=== PATIENT | male | born 1980 | race Caucasian/White ===

== ENCOUNTER 2016-12-19 13:08 | Emergency (ER) | payer OTHER ==
--- NOTE | ~2016-12-19 | CR252 ---
[facility] A Service of [facility] RADIOLOGY TEXT RESULTS PATIENT: TRICIA TYLER LOCATION: [facility] : 82 UNIT #: [id number] AGE: [address]: Nando Oneil MD SEX: M ORDER DR: [id number] [facility] [address]. [place], [place] [address] [id number] E MR#: [id number] Acc #: [id number] NAME: TRICIA TYLER : 1980 SEX: M STUDY DATE/TIME: 12/19/2016 12:53 UNIT: [facility] ROOM: STUDY DESCRIPTION: CR Tibia and Fibula 2 Views Lt Attending Physician: Nando Oneil M.D. Ordering Physician: Nando Oneil M.D. MEDICAL IMAGING REPORT This report is preliminary unless electronic signature is present EXAM Left leg, 12/19/2016. HISTORY 36-year-old male with left leg pain status post reduction of left fibular fracture today. COMPARISON Left leg same date. FINDINGS 3 views of the left leg demonstrate interval casting of the left leg with reduction of the fibular fracture. There is improved alignment and positioning at the fracture site. There is only minimal residual displacement of the spiral oblique fracture and the butterfly fragment. IMPRESSION Interval reduction of the left fibular fracture with improvement in alignment. There is only minimal residual displacement of the spiral oblique fracture and butterfly fragment. Dictated by... Alberto Chu M.D. THIS IS AN ELECTRONICALLY VERIFIED REPORT Alberto Chu M.D. at 12/20/2016 5:58 AM EDUARDO/radha TD: 12/19/2016 15:14 JOB #: [id number] [facility] A Service [facility] RADIOLOGY TEXT RESULTS PATIENT: TRICIA TYLER LOCATION: [facility] UNIT : 82 UNIT #: [id number] AGE: [address]: Nando Oneil MD SEX: M ORDER DR: MEDICAL IMAGING REPORT COPY
--- NOTE | ~2016-12-19 | CR17 ---
[facility] A Service [facility] RADIOLOGY TEXT RESULTS PATIENT: TRICIA TYLER LOCATION: [facility] : 82 UNIT #: [id number] AGE: [address]: Nando Oneil MD SEX: M ORDER DR: [id number] [facility] [address]. [place], [place] [address] [id number] E MR#: [id number] Acc #: [id number] NAME: TRICIA TYLER : 1980 SEX: M STUDY DATE/TIME: 12/19/2016 11:46 UNIT: [facility] ROOM: STUDY DESCRIPTION: CR Ankle 2 Views Lt Attending Physician: Nando Oneil M.D. Ordering Physician: Nando Oneil M.D. MEDICAL IMAGING REPORT This report is preliminary unless electronic signature is present EXAM Left ankle, 12/19/2016. HISTORY 36-year-old male with left ankle pain after slipping off ledge of truck today. COMPARISON Left leg same date. FINDINGS 2 views of the left ankle demonstrate complete dislocation of the tibiotalar joint. The talus is located posterior and lateral to the distal tibia. There is a mildly impacted spiral oblique fracture of the mid fibular shaft. IMPRESSION 1. Complete dislocation of the tibiotalar joint. The talus is displaced posterior and lateral in relation to the distal tibia. 2. Mildly impacted and angulated spiral oblique fracture of the mid fibular shaft. Dictated by... Alberto Chu M.D. THIS IS AN ELECTRONICALLY VERIFIED REPORT Alberto Chu M.D. at 12/20/2016 5:53 AM EDUARDO/radha TD: 12/19/2016 14:28 [facility] A Service [facility] RADIOLOGY TEXT RESULTS PATIENT: TRICIA TYLER LOCATION: [facility] : 82 UNIT #: [id number] AGE: [address]: Nando Oneil MD SEX: M ORDER DR: JOB #: [id number] MEDICAL IMAGING REPORT COPY
--- NOTE | ~2016-12-19 | CR252 ---
[facility] A Service of [facility] RADIOLOGY TEXT RESULTS PATIENT: TRICIA TYLER LOCATION: [facility] : 82 UNIT #: [id number] AGE: [address]: Nando Oneil MD SEX: M ORDER DR: [id number] [facility] [address]. [place], [place] [address] [id number] E MR#: [id number] Acc #: [id number] NAME: TRICIA TYLER : 1980 SEX: M STUDY DATE/TIME: 12/19/2016 11:47 UNIT: [facility] ROOM: STUDY DESCRIPTION: CR Tibia and Fibula 2 Views Lt Attending Physician: Nando Oneil M.D. Ordering Physician: Nando Oneil M.D. MEDICAL IMAGING REPORT This report is preliminary unless electronic signature is present EXAM Left leg, 12/19/2016. HISTORY Left leg pain after slipping of ledge of truck today. COMPARISON Left ankle same date. FINDINGS 2 views of the left leg demonstrate a mildly impacted and angulated spiral oblique fracture of the mid fibular shaft. There is an 11 cm butterfly fragment located posterior and medial to the fracture site. Mild apex lateral angulation. There is approximately 2 cm of impaction at the fracture site. Proximal tibia appears intact. IMPRESSION Mildly impacted and angulated spiral oblique fracture of the mid fibular shaft with an 11 cm butterfly fragment noted adjacent to the fracture site along the posterolateral aspect. Dictated by... Alberto Chu M.D. THIS IS AN ELECTRONICALLY VERIFIED REPORT Alberto Chu M.D. at 12/20/2016 5:58 AM EDUARDO/radha TD: 12/19/2016 14:32 JOB #: [id number] [facility] A Service of [facility] RADIOLOGY TEXT RESULTS PATIENT: TRICIA TYLER LOCATION: [facility] : 82 UNIT #: [id number] AGE: [address]: Nando Oneil MD SEX: M ORDER DR: MEDICAL IMAGING REPORT COPY
--- NOTE | ~2016-12-19 | CR17 ---
[facility] A Service of [facility] RADIOLOGY TEXT RESULTS PATIENT: TRICIA TYLER LOCATION: [facility] : 82 UNIT #: [id number] AGE: [address]: Nando Oneil MD SEX: M ORDER DR: [id number] [id number] [facility]. [place], [place] [address] [id number] E MR#: [id number] Acc #: [id number] NAME: TRICIA TYLER : 1980 SEX: M STUDY DATE/TIME: 12/19/2016 12:54 UNIT: [facility] ROOM: STUDY DESCRIPTION: CR Ankle 2 Views Lt Attending Physician: Nando Oneil M.D. Ordering Physician: Nando Oneil M.D. MEDICAL IMAGING REPORT This report is preliminary unless electronic signature is present EXAM Left ankle, 12/19/2016. HISTORY Post reduction left ankle dislocation today. COMPARISON Left ankle same date. FINDINGS 3 views of the left ankle demonstrates interval reduction of the tibiotalar joint. No evidence of displaced fracture, allowing for overlying casting material. Reduction of the left fibular fracture is also noted. IMPRESSION Interval reduction of previously noted tibiotalar dislocation. No evidence of a grossly displaced ankle fracture, although fine bony detail is obscured by a overlying casting material. Dictated by... Alberto Chu M.D. THIS IS AN ELECTRONICALLY VERIFIED REPORT Alberto Chu M.D. at 12/20/2016 5:59 AM EDUARDO/radha TD: 12/19/2016 15:15 JOB #: [id number] MEDICAL IMAGING REPORT [facility] A Service [facility] RADIOLOGY TEXT RESULTS PATIENT: TRICIA TYLER LOCATION: [facility] : 82 UNIT #: [id number] AGE: [address]: Nando Oneil MD SEX: M ORDER DR: COPY
[2016-12-19] MEDS ORDERED: NO MEDICATIONS (13:18)
[2016-12-22] MEDS ORDERED: ZOFRAN PO (16:20)
[2016-12-22] MEDS ORDERED: PERCOCET 5/321 UDTAB DOB (16:20)
[2016-12-23] MEDS ORDERED: ECOTRIN325 MG PO (15:30)
== END 2016-12-19 15:25 | disposition home or self-care (01) ==
LOC: CED 13:08
DX: S82.442A Displaced spiral fracture of shaft of left fibula, initial encounter for closed fracture (principal); S82.432A Displaced oblique fracture of shaft of left fibula, initial encounter for closed fracture; S93.05XA Dislocation of left ankle joint, initial encounter; F17.200 Nicotine dependence, unspecified, uncomplicated; V87.8XXA Person injured in other specified noncollision transport accidents involving motor vehicle (traffic), initial encounter
CPT/HCPCS: 27781; 73590; 73600; 96374; 96375; 96376; 99283; 99284; J1170; J2250; J2405